=== PATIENT | female | born 1995 | race Caucasian/White ===

== ENCOUNTER 2020-08-26 21:00 | Emergency (ER) | payer SELFPAY ==
[2020-08-26 21:02] VITALS: BP 111/80; PULSE 72; RESP 16; TEMP 36.8; O2SAT 100; BMI 38.0
[2020-08-26 22:00] VITALS: BP 111/80; PULSE 72; RESP 16; TEMP 36.8; O2SAT 100
[2020-08-26 23:09] LABS: Glucose Urine UA NEG (NEG); Leukocyte Esterase Urine NEG (NEG); Nitrite Urine NEG (NEG); PH 6.5 (5.0-8.0); Specific Gravity - Urine 1.025 (1.005-1.025); Urine Blood NEG (NEG); Urine Ketones NEG (NEG); Urine Protein NEG (NEG-TRACE)
--- NOTE | 2020-08-26 23:21 | ED.FEMALEGU ---
HPI - Female Genitourinary General Chief complaint: Vaginal Bleeding Stated complaint: Vaginal Bleeding Time Seen by Provider: 08/26/20 22:13 Source: patient and interpreter translator Mode of arrival: ambulatory Limitations: no limitations History of Present Illness HPI Narrative: This is a 24-year-old female without significant past medical history who presents with complaints of vaginal bleeding and lower pelvic discomfort and concerns about whether not she is . She states that her last full menstrual period was in June, she then took a test on August 11 and it was positive but then shortly thereafter she developed vaginal bleeding with clots and retook test August 25 which was negative. Patient has some concerns about the lower pelvic discomfort but denies any associated fevers, chills, nausea, vomiting, diarrhea, urinary pain / burning /frequency. Related Data Allergies Allergy/AdvReac Type Severity Reaction Status Date / Time No Known Allergies Allergy Verified 08/26/20 22:59 Review of Systems Review of Systems: Pertinent positives and negatives as stated in HPI 10 point review of systems is otherwise negative. [facility] Past Medical History Source: nursing notes reviewed Social History Social History Advance Directives: No Physical Exam Vital Signs: Vital Signs: Vital Signs Temp Pulse Resp BP Pulse Ox 08/26/20 21:02 98.3 F 72 16 111/80 100 Body Mass Index 38.0 VITAL SIGNS: Reviewed. GENERAL: Well developed, well nourished, in no acute distress. HEAD: Normocephalic/atraumatic, EYES: PERRLA, EOMI intact without pain, no nystagmus/pallor/icterus noted EARS: Ext canals without abnormality, TMs non-bulging and non-erythematous NOSE: Nares patent bilateral OROPHARYNX: no oral lesions noted, posterior pharynx clear and non-erythematous without noted tonsillar enlargement/erythema/exudates NECK: Supple, no adenopathy LUNGS: Normal breath sounds. No adventitious sounds or accessory muscle use. SpO2<100> CARDIOVASCULAR: Regular rate and rhythm without noted murmurs, no JVD or lower extremity edema. ABDOMEN: Soft, non-tender, non-distended with bowel sounds. No rigidity. No guarding. No palpable masses or hernias noted MUSCULOSKELETAL: No tenderness, deformities, or effusions noted on gross inspection. EXTREMITIES: No cyanosis, clubbing or edema. SKIN: Inspection of the skin reveals no rashes, ulcerations, jaundice, pallor, or petechiae. NEUROLOGIC: Alert and oriented x 4. Strength and sensation to light touch were grossly intact x 4. Course Course Course Narrative: This is a 24-year-old female with history and clinical presentation consistent with likely SAB shortly after her positive test, and current discomfort may be secondary to menstrual cramps but will rule out UTI. As our been no fever or chills there is little evidence to support retention products. On review of investigations is no evidence infection or hematuria and urine test is negative. Discussed all results and findings with the patient bedside explained that she may be developing menstrual cramping due to normal resumption menstrual cycle. MDM - Female Genitourinary Lab Data Labs: Lab Results 08/26/20 Range/Units 23:03 Urine Color YELLOW Urine Appearance CLEAR Urine pH 6.5 (5.0-8.0) Ur Specific [place] 1.025 (1.005-1.025) Urine Protein NEG (NEG-TRACE) MG/DL Urine Glucose (UA) NEG (NEG) MG/DL Urine Ketones NEG (NEG) MG/DL Urine Blood NEG (NEG) Urine Nitrite NEG (NEG) Ur Leukocyte Esterase NEG (NEG) Urine Test NEGATIVE (NEGATIVE) Discharge Plan Discharge Clinical Impression: Abdominal cramping Patient Disposition: Home, Self-Care Instructions: Dysmenorrhea (ED) Additional Instructions: 1. Tylenol 1000 mg, por v?a oral, cada 6 horas seg?n sea necesario para controlar el dolor. No exceda los 4000 mg en 24 horas. 2. Ibuprofeno 400 mg, por v?a oral con leche o alimentos, cada 6 horas seg?n sea necesario para controlar el dolor. 3. Regrese al departamento de emergencias si presenta fiebre, escalofr?os o empeoramiento del dolor p?lvico a pesar de usar Tylenol e ibuprofeno. El paciente y / o la burak reconocen que comprenden los resultados (seg?n corresponda), el diagn?stico, el plan de tratamiento, la necesidad de seguimiento y los s?ntomas que deber?an impulsar el regreso a la elton de emergencias. Referrals: Physician,None [Primary Care Provider] - 2 days ( for further follow-up and evaluation) Print Language: Kosovan
[2020-08-26 23:22] LABS: Appearance Urine CLEAR; Color Urine YELLOW
[2020-08-26 23:23] LABS: UPreg QC Valid YES; Urine Pregnancy NEGATIVE (NEGATIVE)
[2020-08-27] VITALS: BP 112/67; RESP 15; O2SAT 100
== END 2020-08-27 00:50 | disposition home or self-care (01) ==
PROVIDERS: Emergency Provider Student in an Organized Health Care Education/Training Program
DX: R10.9 Unspecified abdominal pain (principal); N93.9 Abnormal uterine and vaginal bleeding, unspecified
CPT/HCPCS: 81003; 81025; 99283; 99284